=== PATIENT | male | born 1960 | race Caucasian/White ===

== ENCOUNTER → 2023-03-09 | Outpatient (CLI) | payer OTHER ==
[2023-03-09 13:36] LABS: HCT 53.9 % (39.6-50.0); HGB 17.9 d/dL (12.0-15.0); MCH 29.5 pg (27.0-32.0); MCHC 33.2 d/dL (32.0-37.0); MCV 88.8 FL (80.0-97.0); Mean Platelet Volume 10.2 FL (9.5-12.2); NRBC Per 100 WBC 0 X 10*3/uL (0.00-0.01); Platelet Count 260 X 10*3/uL (140-440); RBC 6.07 X 10*6/uL (4.40-5.60); WBC 8.45 X 10*3/uL (4.50-10.00)
== END | disposition home or self-care (01) ==
LOC: LABPAT 08:35
PROVIDERS: ATTEND Podiatrist
DX: Z01.818 Encounter for other preprocedural examination (principal); I10 Essential (primary) hypertension; Z83.2 Family history of diseases of the blood and blood-forming organs and certain disorders involving the immune mechanism
CPT/HCPCS: 81241; 84132; 85027; 93005

== ENCOUNTER 2023-03-13 10:36 | Day surgery (SDC) | payer OTHER ==
[~2023-03-13 10:36] MED LIST: DEXAMETHASONE SOD PHOSPHATE 4 MG/ML 1 ML VIAL IV ONE; HYDROmorphone 0.5 MG/0.5 ML SYRINGE IVP PRN; LACTATED RINGERS 1,000 ML IV SCH; LIDOCAINE 1% (10MG/ML) FOR IV START INTRADERMA PRN; MIDAZOLAM 2 MG/2 ML VIAL IV PRN; ONDANSETRON 4 MG/2 ML VIAL IVP ONE
[2023-03-13] MEDS ORDERED: MIDAZOLAM 2 MG/2 ML VIAL IVP ONE (11:41)
[2023-03-13] MEDS ORDERED: fentaNYL (PF) 50 MCG/1 ML VIAL IVP ONE (11:41)
--- NOTE | 2023-03-13 11:55 | P.ANPRN ---
Procedure Note - Anesthesia - Nerve Block Performed Right Adductor Canal Single Time Out Performed: Yes Date of Procedure: 03/13/23 Procedure Start Time: 11:40 Procedure Stop Time: 11:47 Location of Patient: PreOp Indication: Acute Post-Operative Pain, Requested by Surgeon Specifically requested for management of pain by DrNarciso: Dada Fulton Sedation Type: Sedate with meaningful contact maintained Preparation: Sterile Prep Position: Supine Needle Types: Pajunk Needle Gauge: 21 Ultrasound used to visualize needle placement: Yes Ultrasound used to observe medication spread: Yes Injectate: 0.5% Ropivacaine (see comment for volume) (20 ML ++ 10 ML ns +4 MG DEXAMETHASON) Blood Aspirated: No Pain Paresthesia on Injection Noted: No Resistance on Injection: Normal Image Stored and Saved: Yes Events: Uneventful and Well Tolerated
--- NOTE | 2023-03-13 12:02 | P.ANPRN ---
Procedure Note - Anesthesia - Nerve Block Performed Right Popliteal Single Time Out Performed: Yes Date of Procedure: 03/13/23 Procedure Start Time: 11:48 Procedure Stop Time: 11:55 Location of Patient: PreOp Indication: Acute Post-Operative Pain, Requested by Surgeon Specifically requested for management of pain by DrNarciso: Dada Fulton Sedation Type: Sedate with meaningful contact maintained Preparation: Sterile Prep Position: Left Lateral Needle Types: Pajunk Needle Gauge: 21 Ultrasound used to visualize needle placement: Yes Ultrasound used to observe medication spread: Yes Injectate: 0.5% Ropivacaine (see comment for volume) (20 ML + 10 ML ns +4 MG DEXAMETHASONE) Blood Aspirated: No Pain Paresthesia on Injection Noted: No Resistance on Injection: Normal Image Stored and Saved: Yes Events: Uneventful and Well Tolerated
[2023-03-13] MEDS ORDERED: fentaNYL (PF) 50 MCG/ML 2 ML AMP ONE (12:43)
[2023-03-13] MEDS ORDERED: ROPIVACAINE 5 MG/ML 30 ML VIAL ONE (12:43)
[2023-03-13] MEDS ORDERED: MIDAZOLAM 2 MG/2 ML VIAL ONE (12:43)
[2023-03-13] MEDS ORDERED: DEXAMETHASONE SOD PHOSPHATE 4 MG/ML 1 ML VIAL ONE (12:43)
[2023-03-13] MEDS ORDERED: LIDOCAINE 2% INJ 20 MG/ML (2 ML VIAL) ONE (12:43)
[2023-03-13] MEDS ORDERED: HYDROmorphone (PF) 1 MG/ML ONE (12:43)
[2023-03-13] MEDS ORDERED: SODIUM CHLORIDE 0.9% (PF) 10 ML VIAL ONE (12:43)
[2023-03-13] MEDS ORDERED: PROPOFOL 10 MG/ML 20 ML VIAL IV ONE (12:43)
[2023-03-13] MEDS ORDERED: LACTATED RINGERS 1,000 ML IV ONE (13:44)
--- NOTE | 2023-03-13 13:56 | P.OP ---
Date of Procedure: 03/13/23 Preoperative Diagnosis: Displaced lateral malleolar fracture right ankle Postoperative Diagnosis: Same Procedure(s) Performed: Open reduction with internal fixation right lateral malleolar fracture Implants: Arthrex 8 hole precontoured lateral malleolar plate with 3.5 locking and nonlocking screws. 3.0 locking screws. Anesthesia: BREEA Surgeon: Dada Fulton Estimated Blood Loss (ml): 1 Pathology: none sent Condition: stable Disposition: PACU Description of Procedure: Prior to the patient being brought to the operative room, anesthesia administered a nerve block on the right lower extremity. Then the patient was brought into the operative room and placed on table in the supine position. Timeout was taken to confirm correct patient identifiers, correct lateral view of surgery, and correct procedure. Once all staff in the room were in agreement with the timeout, the patient was induced and placed under general anesthesia. A well-padded tourniquet was placed on the right thigh and a bump underneath the right hip to internally rotate the right leg. The right leg was then prepped and draped in usual manner. The right leg was exsanguinated with an Esmarch bandage and then the tourniquet inflated to 250 mmHg. Attention was directed over the lateral malleolus where a linear incision was made over the fracture site. The incision was deepened down to the subcutaneous tissue careful to identify, avoid, and retract any neurovascular structures and cauterize any bleeding vessels. Dissection was continued down to the periosteum. The periosteum was incised and reflected anteriorly and posteriorly. The fracture was identified and distracted. Utilizing a combination of a curette and Spike, the hematoma and interposing soft tissue were removed between the fracture fragments. The wound is then irrigated with antibiotic saline. Bone reduction forceps were used to realign the fracture and then clamped in place. Fluoroscopy showed that the fracture was well aligned both on the AP and lateral views. A drill hole for the interfragmentary compression screw was made from posterior distal to anterior proximal, perpendicular to the fracture line. A 3.5 mm article screw was inserted and tightened until the fracture compressed. Fluoroscopy confirmed the proper placement of the hardware and maintained reduction of the fracture. Then an 8 hole Arthrex precontoured lateral malleolar fracture plate was positioned laterally over the lateral malleolus and adjusted under fluoroscopy until properly aligned. Then it was temporarily fixated to the fibula. A 3.5 nonlocking screw was placed first just proximal to the fracture line. This is placed to compress the plate against the bone. Then 3.5 mm locking screws 2 were placed in the most proximal holes of the plate. Fluoroscopic imaging at this point showed proper placement of the hardware. Then attention was directed to the distal aspect of the plate. Drilling was done to the holes in the plate and under direct fluoroscopic visualization to prevent any penetration of the joint. A 3 mm locking screws were placed of the drill holes. Once completed final fluoroscopic imaging showed anatomic alignment of the fracture on the AP, oblique, and lateral views. All hardware was in proper position. Then under direct live fluoroscopy, the ankle was stressed to assess for any possible syndesmotic instability. There was no abnormal movement of the syndesmosis nor was there any abnormal gapping of the medial joint space. The wound is then thoroughly irrigated with anatomic saline. Deep tissue closure was done with 0 Vicryl. Subcu closure done for Monocryl. Skin closure done with day. An Arthrex jumpstart dressing was placed over the incision then a dry sterile dressings applied to the right ankle. The tourniquet was released and capillary refill return to all digits on the right foot. The patient was then placed a below-knee fracture boot with ankle neutral position. Anesthesia was reversed and the patient was taken recovery with vital signs stable.
--- NOTE | 2023-03-13 13:57 | FL ---
EXAMINATION TYPE: FL guidance operating room DATE OF EXAM: 03/13/2023 HISTORY: Fluoroscopy time Total dose area product (DAP) in uGy*m?, mGy*cm? (or similar): 41sec fluoro time .0.4781 DAP IMPRESSION: 1. Fluoroscopy time.
--- NOTE | 2023-03-13 13:58 | XR ---
EXAMINATION TYPE: XR ankle complete RT DATE OF EXAM: 03/13/2023 COMPARISON: NONE HISTORY: Postop FINDINGS: 4 views of the ankle demonstrate the postsurgical change involving the fibula. One of the orthopedic screws appears to separate from the fixation plate. IMPRESSION: 1. Postsurgical changes.
[2023-03-13 13:59] VITALS: RESP 18; TEMP 97.1
[2023-03-13 15:25] VITALS: BP 133/68; PULSE 65
== END 2023-03-13 16:00 | disposition home or self-care (01) ==
LOC: OR 10:36
PROVIDERS: ATTEND Podiatrist
DX: S82.61XA Displaced fracture of lateral malleolus of right fibula, initial encounter for closed fracture (principal); G89.18 Other acute postprocedural pain; I10 Essential (primary) hypertension; E78.5 Hyperlipidemia, unspecified; X58.XXXA Exposure to other specified factors, initial encounter; Z79.899 Other long term (current) drug therapy
CPT/HCPCS: 27792; 64447; 64445; 73610; C1713; J2250; J1100; J0690; J2405; J3010 ×2; J1170; J2795; J2704; J2001